=== PATIENT | female | born 1955 | race Caucasian/White ===

== ENCOUNTER → 2017-03-08 | Outpatient (CLI) | payer OTHER ==
[~2017-03-08] MED LIST: ASPIR 8181 M1 PO; AZOR 5/40 MG1 TABLET PO
== END | disposition home or self-care (01) ==
LOC: NUC 08:44
DX: M15.0 Primary generalized (osteo)arthritis (principal); C50.911 Malignant neoplasm of unspecified site of right female breast
CPT/HCPCS: 78306; A9503

== ENCOUNTER 2017-03-29 06:38 | Day surgery (SDC) | payer OTHER ==
[~2017-03-29] VITALS: Ht 152.4 cm; Wt 54.4 kg
[~2017-03-29 06:38] MED LIST changes: +LO-DOSE ASPIRIN81 M2 PO; +VITAMIN C1000 MG PO
[2017-03-29 07:20] VITALS: BP 119/57
[2017-03-29 14:35] VITALS: BP 126/57
[2017-03-29 20:01] VITALS: BP 102/57
[2017-03-29 23:12] VITALS: BP 96/56
[2017-03-30 03:32] VITALS: BP 107/60
[2017-03-30 08:00] VITALS: BP 163/63
[2017-03-30] MEDS ORDERED: OXAYDO5 MG PO (08:59)
== END 2017-03-30 10:59 | disposition home or self-care (01) ==
LOC: SDC 06:38 → NUC 08:00 → 2SOUTH 10:30 → 2EAST 10:30
DX: C50.811 Malignant neoplasm of overlapping sites of right female breast (principal); Z17.0 Estrogen receptor positive status [ER+]; F17.200 Nicotine dependence, unspecified, uncomplicated; I10 Essential (primary) hypertension
CPT/HCPCS: 78195; 78999; 88305; 88307; 88331; A9541; G0378; J0330; J0690; J1100; J1170; J2250; J2405; J3010; J7030; S0020